=== PATIENT | female | born 1950 | race Caucasian/White ===

== ENCOUNTER 2025-05-13 11:45 | Outpatient (CLI) | payer MEDICARE ==
[~2025-05-13 11:45] MED LIST: ASPI-845 PO; CALC-1099 PO; CHOL100046 PO; DILT180C90 PO; DOCU-148 PO; ESTR0.5T28 PO; FERR-86 PO; MEDR2.5T PO; METO-395 PO; NAPR-1166 PO; TRIA1CAP88 PO; cpm
[2025-05-13 12:48] LABS: MEAN PLATELET VOLUME 7.2 FL (7.4-10.4); RED CELL DISTRIBUTION WIDTH 13.9 % (11.5-14.5)
[2025-05-13 13:09] LABS: CREATININE 1.68 MG/DL (0.40-0.90); TOTAL CARBON DIOXIDE 29.6 MMOL/L (24-32); eGFR 30 ML/MIN
== END 2025-05-13 23:59 | disposition home or self-care (01) ==
LOC: RAD 11:45
PROVIDERS: ATTEND Student in an Organized Health Care Education/Training Program
DX: I48.91 Unspecified atrial fibrillation (principal); I48.92 Unspecified atrial flutter
CPT/HCPCS: 36415; 80053; 85025; Q9967

== ENCOUNTER 2025-05-18 10:18 | Day surgery (SDC) | payer MEDICARE ==
[2025-05-18] VITALS (11 sets, daily range): BP systolic 124–173; BP diastolic 75–123; PULSE 94–128; RESP 12–18; O2SAT 94–96
[~2025-05-18] VITALS: Ht 177.8 cm; Wt 74.2 kg
[2025-05-18] MEDS ORDERED: ANAS1TAB10 PO (11:02)
[2025-05-18] MEDS ORDERED: ROSU10TA98 PO (11:02)
[2025-05-18] MEDS ORDERED: DILT120T3 PO (11:02)
[2025-05-18] MEDS ORDERED: FERR324T PO (11:06)
[2025-05-18] MEDS ORDERED: DUTA0.5C36 PO (11:06)
[2025-05-18] MEDS ORDERED: APIX5TAB3 PO (11:06)
[2025-05-18] MEDS ORDERED: CELE-148 PO (11:06)
[2025-05-18] MEDS ORDERED: METO-411 PO (11:06)
[2025-05-18] MEDS: MIDAZolam 1mg/ml 10ml vial IV ONE (12:47)
[2025-05-18] MEDS: fentaNYL/PF 50MCG/1 ML 2ML syringe IV ONE (12:47)
--- NOTE | 2025-05-18 17:13 | CARDIOLOGY REPORT ---
APPROVED REPORT EXAM: Focused, limited transesophageal echocardiogram with color flow Doppler. Patient Location: OUT-PATIENT Blood Pressure: 173 / 115 mmHg Heart Rate: 88-142 bpm Rhythm: ATRIAL FIBRILLATION WITH RVR Indications EVALUATE LAAO - ? LIGATION IN CARDIAC SURGERY Unk sized Bioprosthetic SAVR - unk DATE? Service Line Coordinator: Conor Juarez MD Previous echo: 09/02/24 CVC EF: 58%; nLLV; mCLVH; nlRV; nlLA; nlRA; nlAVR; RVSP 32 mmHG LEFT VENTRICLE Normal LV size and wall thickness. Overall systolic function is abnormal, secondary to HR. LVEF is 40%. RIGHT VENTRICLE RV is normal size reduced function. (Likely secondary to HR). ATRIA Left atrium is severely dilated. Intact interatrial septum - no flow detected. Left atrial appendage is visualized in multiple planes and appears surgically ligated. No flow detected. Left upper pulmonary vein identified and isolated by 2D and color Doppler. AORTIC VALVE Unknown sized bioprosthetic SAVR appears well seated with grossly normal function. Limited evaluation due to focused exam. MITRAL VALVE Mild MV annular calcification without stenosis. Mild regurgitation. PERICARDIUM Normal pericardium. No effusion. CONCLUSION Normal LV size and wall thickness. Overall systolic function is abnormal, secondary to HR. LVEF is 40%. RV is normal size reduced function. (Likely secondary to HR). Left atrium is severely dilated. Intact interatrial septum - no flow detected. Left atrial appendage is visualized in multiple planes and appears surgically ligated. No flow detected. Left upper pulmonary vein identified and isolated by 2D and color Doppler. Unknown sized bioprosthetic SAVR appears well seated with grossly normal function. Limited evaluation due to focused exam. Mild MV annular calcification without stenosis. Mild regur gitation. Normal pericardium. No effusion. Conclusion Normal LV size and wall thickness. Overall systolic function is abnormal, secondary to HR. LVEF is 40%. RV is normal size reduced function. (Likely secondary to HR). Left atrium is severely dilated. Intact interatrial septum - no flow detected. Left atrial appendage is visualized in multiple planes and appears surgically ligated. No flow detected. Left upper pulmonary vein identified and isolated by 2D and color Doppler. Unknown sized bioprosthetic SAVR appears well seated with grossly normal function. Limited evaluation due to focused exam. Mild MV annular calcification without stenosis. Mild regurgitation. Normal pericardium. No effusion.
== END 2025-05-18 19:40 | disposition home or self-care (01) ==
LOC: SSTAY O 10:18
PROVIDERS: ATTEND Student in an Organized Health Care Education/Training Program
DX: I48.0 Paroxysmal atrial fibrillation (principal); I34.81 Nonrheumatic mitral (valve) annulus calcification; I34.0 Nonrheumatic mitral (valve) insufficiency; E78.5 Hyperlipidemia, unspecified; E03.9 Hypothyroidism, unspecified; I10 Essential (primary) hypertension; Z95.2 Presence of prosthetic heart valve; Z87.891 Personal history of nicotine dependence
CPT/HCPCS: 93312; 93325; J2250; J3010; J7030